=== PATIENT | female | born 1990 | race Caucasian/White ===

== ENCOUNTER 2023-06-08 11:51 | Emergency (ER) | payer OTHER, SELFPAY ==
[2023-06-08 12:07] VITALS: BP 127/83
--- NOTE | 2023-06-08 13:00 | ED.GENMED ---
History of Present Illness
<Breanna Solomon PA-C - Last Filed: 06/11/23 20:17>
General
Chief Complaint: Musculo-Skeletal Complaint
Source: patient
Exam Limitations: none
Time Seen by Provider: 06/08/23 12:42
Nursing documentation reviewed up to this point in time: agreed with
Travel History
Have you had any contact with someone who has COVID-19?: No
Do you have any symptoms of coronavirus? Fever > 100 degrees, chills, cough, shortness of breath, sore throat, loss of taste or smell, muscle aches, or headache?: No
History of Present Illness
History of Present Illness:
Patient is a 32-year-old female with history of sarcoma presenting for evaluation of atraumatic right lower extremity pain. Patient reports pain behind right knee down into right ankle which started about a week ago and has been constant since.
Patient describes it as a throbbing pain that is so severe she has been unable to sleep. She also endorses recent worsening in swelling in right lower extremity mainly in ankle and foot. She has been taking Tylenol, Motrin, oxycodone with very
little improvement in pain. She denies any chest pain, shortness of breath, fever, chills. She denies any numbness/tingling in lower extremity
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 She has been essentially pain-free since procedure until about a week and go when this right lower extremity pain began acutely.
Patient did speak with her plastic surgeon at [facility] who recommended that she come to the emergency department to rule out a DVT.
Patient states that her father does have a history of blood clots in his legs.
Past History
<Breanna Solomon PA-C - Last Filed: 06/11/23 20:17>
Past History
ED Past Medical History: Other (Anemia, ovarian cyst)
ED Past Surgical History: , Orthopedic (Left hip there), Tonsilectomy and Other (Breast left)
Social History
Tobacco: Non-smoker
Alcohol: None
Drug: None
Living: with family
Phy Exam
<Breanna Solomon PA-C - Last Filed: 06/11/23 20:17>
Physical Exam
Physical Exam:
General: Well appearing and non-toxic
Vitals: Vital signs stable, afebrile
HEENT: Atraumatic, normocephalic; pupils equal round reactive light bilaterally, protecting airway
Neck: appears supple, no meningeal signs
CV: Regular rate and rhythm, heart sounds normal, no evidence of cyanosis
Resp: No evidence of respiratory distress, lungs clear bilaterally
Abd: Soft, nontender, non-distended
Extremities: 1+ edema of right lower leg and right foot with mild tenderness at right popliteal and right calf, well healing surgical scar and skin graft site on right anterior lower leg without any signs of infection; right lower extremity
neurovascularly intact, DP and PT pulses palpable and equal bilaterally
Neuro: alert and oriented x 3; grossly intact
Psych: Normal affect
Skin: Intact, well-healing skin graft and scars on the right anterior lower leg
Course
<Breanna Solomon PA-C - Last Filed: 06/11/23 20:17>
Orders/Labs/Results
Orders:
Orders
06/08/23 12:11
US Periph Venous LOWER Ext RT Urgent
Comment: s/p sarcoma surgery right funk 03/2023 at [email or web address]
Reason For Exam: pain to right lower leg
06/08/23 13:35
Acetaminophen [Tylenol] 650 mg PO NOW STA
06/08/23 13:47
Test Result ONCE
06/08/23 14:37
Complete Blood Count/With Diff Urgent
Comprehensive Metabolic Panel Urgent
HCG, Serum Qualitative Screen Urgent
Abnormal Lab Results
06/08/23
14:37
RBC 3.95 L 10^6/uL
(4.20-5.40)
Hct 36.5 L %
(37.0-47.0)
MCH 31.6 H pg
(27.0-31.0)
Chloride 108 H mmol/L
(98-107)
06/08/23 14:37
06/08/23 14:37
Vital Signs
Initial and Last Documented VS:
Initial Vital Signs
Temp Pulse Resp BP Pulse Ox
98.1 F 86 16 127/83 98
06/08/23 12:07 06/08/23 12:07 06/08/23 12:07 06/08/23 12:07 06/08/23 12:07
Last Documented Vital Signs
Temp Pulse Resp BP Pulse Ox
98.1 F 86 16 127/83 98
06/08/23 12:07 06/08/23 12:07 06/08/23 12:07 06/08/23 12:07 06/08/23 12:07
<Felix Rodriguez DO - Last Filed: 06/08/23 20:02>
Orders/Labs/Results
Orders:
Orders
06/08/23 12:11
US Periph Venous LOWER Ext RT Urgent
Comment: s/p sarcoma surgery right funk 03/2023 at [email or web address]
Reason For Exam: pain to right lower leg
06/08/23 13:35
Acetaminophen [Tylenol] 650 mg PO NOW STA
06/08/23 13:47
Test Result ONCE
06/08/23 14:37
Complete Blood Count/With Diff Urgent
Comprehensive Metabolic Panel Urgent
HCG, Serum Qualitative Screen Urgent
Abnormal Lab Results
06/08/23
14:37
RBC 3.95 L 10^6/uL
(4.20-5.40)
Hct 36.5 L %
(37.0-47.0)
MCH 31.6 H pg
(27.0-31.0)
Chloride 108 H mmol/L
(98-107)
06/08/23 14:37
06/08/23 14:37
Vital Signs
Initial and Last Documented VS:
Initial Vital Signs
Temp Pulse Resp BP Pulse Ox
98.1 F 86 16 127/83 98
06/08/23 12:07 06/08/23 12:07 06/08/23 12:07 06/08/23 12:07 06/08/23 12:07
Last Documented Vital Signs
Temp Pulse Resp BP Pulse Ox
98.1 F 86 16 127/83 98
06/08/23 12:07 06/08/23 12:07 06/08/23 12:07 06/08/23 12:07 06/08/23 12:07
<Breanna Solomon PA-C - Last Filed: 06/11/23 20:17>
MDM/Problems Addressed
Differential Diagnosis Includes:
Not limited to: DVT, postoperative healing, Flores's cyst, knee sprain, knee effusion
MDM/Problems Addressed:
Patient is a 32-year-old female approximately 2 months postop from sarcoma removal/skin graft on right lower leg presenting for evaluation of persistent right calf pain and worsening swelling to rule out DVT. No chest pain or shortness of breath.
Vital stable. Exam as above. There is a well-healing surgical site on right anterior funk. There is 1+ pitting edema of right lower extremity significant tenderness palpation. Will check ultrasound to rule out DVT.
Ultrasound report showed no evidence of DVT. She is stable for discharge with return precautions. Patient was instructed to keep leg elevated, ice, pain medication as needed. She should follow-up with her plastic surgeon who performed surgery.
Chronic conditions affecting care:
Recent surgery
Acute Exacerbation and/or Progression of Chronic Illness:
N/A
<Breanna Solomon PA-C - Last Filed: 06/11/23 20:17>
*Radiology
Radiology exam reviewed: radiology read reviewed
*Pulse Oximetry
Patient hypoxic: no
*EKG
Interpreted by ED Provider?: NA
*Com Writer Interpretation
Rate: Com Writer- N/A
*Critical Care Note
Total Time (30-74mins, 75-104mins- exclusive of procedures): Not Applicable
ED Attending Note
<Breanna Solomon PA-C - Last Filed: 06/11/23 20:17>
-
Portions of this chart may have been created with voice recognition software.� Occasional wrong word or��sound alike� substitutions may have occurred due to the inherent limitations of voice recognition software.
<Felix Rodriguez DO - Last Filed: 06/08/23 20:02>
ED Attending Note
Patient seen and examined by attending physician: Yes
I performed the substantive portion of visit, reviewed & personally made and approve the management plan that is documented in note by myself or ALLISON.: Yes
ED Attending Note:
Patient is a 32-year-old female who presents to the emergency department with swelling and pain in her right leg. Patient had an excision of a sarcoma and then skin graft that was completed in April 08. Patient states that initially her leg
when she started to weight-bear on it which was just in the past couple weeks that it would swell but when she elevated with go down. However now its persisted. Patient complains of pain in the calf. In addition patient's father has a history of
repeated DVTs due to a clotting disorder. Patient denies any chest pain or shortness of breath. Patient is mildly swollen in the distal right lower extremity from the knee distally. Patient has a wide excision with a skin graft anteriorly and
laterally. Patient does have some calf tenderness. Patient has good pulses. The ultrasound ultimately was negative. Patient was given instructions to keep elevated and ice.
Discharge Plan
Departure
Patient Disposition: Home (Routine Discharge)
Date of Disposition: 06/08/23
Time of Disposition: 14:53
Patient with high blood pressure during this ER visit?: No
Condition: Good
Covid-19: Not Applicable
Discharge Problem:
Lower extremity pain, right, Swelling of right lower extremity
Prescriptions:
No Action
Fish Oil
1 cap PO DAILY
Opti Greens
1 dose PO DAILY
Rx Instructions:
powder
Probiotic
12 cap PO DAILY
coQ10 (ubiquinol)
1 cap PO DAILY
Referrals:
Mile Dietz PA-C [Family Provider] -
Activity Restrictions/Additional Instructions:
- Return to the emergency department with any high fevers, chest pain, shortness of breath, intractable pain, worsening swelling, redness, warmth of right lower extremity, or any other concerns
-As discussed�you should continue to rest, ice, and elevate your right lower extremity. You can continue Tylenol/Motrin as needed for discomfort
-We will give you a call if the ultrasound shows any evidence of a DVT.
-You should follow-up with your plastic surgeon for further evaluation/management
Interventions
Interventions:
*Risk Screen - Suicide Last Done: 06/08/23 15:16
*General Assessment Last Done: 06/08/23 15:16
*Neglect/Abuse Screening Last Done: 06/08/23 15:16
*ED COVID-19 Vaccine History Last Done: 06/08/23 12:07
*Nursing Disposition Last Done: 06/08/23 15:08
ED-Musculoskeletal Assessment Last Done: 06/08/23 12:47
Discharge Date and Time
Discharge Date/Time: 06/08/23 15:05
Print Language: TELUGU
[2023-06-08] MEDS: TYLENOL 650 MG PO (14:27)
[2023-06-08 14:49] LABS: % Eosinophils 1.5 % (0-6); % Immature Granulocytes 0.4 % (0-0.5); % Lymphocytes 32.9 % (20.5-51.1); % Monocytes 5.4 % (1.7-9.3); % Neutrophils 58.8 % (42.2-75.2); Absolute Basophils 0.1 10^3/uL (0-0.2); Absolute Eosinophils 0.1 10^3/uL (0-0.7); Absolute Lymphocytes 2.2 10^3/uL (1.2-3.4); Absolute Monocytes 0.4 10^3/uL (0.1-0.6); Hematocrit 36.5 % (37.0-47.0); Hemoglobin 12.5 g/dL (12.0-16.0); Mean Corp Hgb Conc. 34.2 g/dL (33.0-37.0); Mean Corpuscular Hgb 31.6 pg (27.0-31.0); Mean Corpuscular Volume 92.4 fL (81.0-99.0); Nucleated Red Blood Cells % 0 %; Platelet Count 327 10^3/uL (130-400); Red Blood Cell Count 3.95 10^6/uL (4.20-5.40); White Blood Cell Count 6.8 10^3/uL (4.8-10.8)
[2023-06-08 15:09] LABS: ALT (SGPT) 14 U/L (0-35); AST (SGOT) 20 U/L (14-36); Albumin 4.5 g/dl (3.5-5.0); Alkaline Phosphatase 42 U/L (38-126); Blood Urea Nitrogen 11 mg/dl (7-17); Calcium 9.4 mg/dl (8.4-10.2); Carbon Dioxide 24 mmol/L (22-30); Chloride 108 mmol/L (98-107); Glucose 88 mg/dl (70-99); Potassium 4.4 mmol/L (3.5-5.1); Sodium 137 mmol/L (135-145); Total Bilirubin 0.5 mg/dl (0.2-1.3); Total Protein 7.1 g/dl (6.3-8.2); eGFR > 60.00
[2023-06-08 15:13] LABS: HCG, Serum Qualitative Screen Negative
== END 2023-06-08 15:05 | disposition home or self-care (01) ==
LOC: EMR 11:51
PROVIDERS: Physician Assistant; EMERGENCY PHYSICIAN Emergency Medicine; FAMILY PHYSICIAN Physician Assistant Medical
DX: M79.605 Pain in left leg (principal); R22.41 Localized swelling, mass and lump, right lower limb
CPT/HCPCS: 99284; 80053; 84703; 85025; 93971

== ENCOUNTER 2023-08-21 14:24 | Outpatient (RCR) | payer OTHER, SELFPAY | END 2023-08-21 23:59 | disposition home or self-care (01) | LOC: RPT 14:24 | PROVIDERS: ATTENDING PHYSICIAN Physician Assistant; FAMILY PHYSICIAN Physician Assistant Medical | DX: M21.371 Foot drop, right foot (principal); R26.9 Unspecified abnormalities of gait and mobility; Z73.6 Limitation of activities due to disability | CPT/HCPCS: 97110; 97112; 97162; 97530 ==

== ENCOUNTER 2023-09-10 10:07 | Outpatient (RCR) | payer OTHER, SELFPAY | END 2023-09-10 23:59 | disposition home or self-care (01) | LOC: RPT 10:07 | PROVIDERS: ATTENDING PHYSICIAN Physician Assistant; FAMILY PHYSICIAN Physician Assistant Medical | DX: M12.371 Palindromic rheumatism, right ankle and foot (principal); R26.9 Unspecified abnormalities of gait and mobility; Z73.6 Limitation of activities due to disability | CPT/HCPCS: 97010; 97110; 97112; 97530 ==

== ENCOUNTER 2024-02-11 09:01 | Outpatient (RCR) | payer OTHER, SELFPAY | END 2024-02-11 23:59 | disposition home or self-care (01) | LOC: RPT 09:01 | PROVIDERS: ATTENDING PHYSICIAN Orthopaedic Surgery; FAMILY PHYSICIAN Physician Assistant Medical | DX: C49.21 Malignant neoplasm of connective and soft tissue of right lower limb, including hip (principal); Z73.6 Limitation of activities due to disability; Z98.890 Other specified postprocedural states | CPT/HCPCS: 97014; 97110; 97112; 97163 ==

== ENCOUNTER 2024-03-24 09:01 | Outpatient (RCR) | payer OTHER, SELFPAY | END 2024-03-24 23:59 | disposition home or self-care (01) | LOC: RPT 09:01 | PROVIDERS: ATTENDING PHYSICIAN Orthopaedic Surgery; FAMILY PHYSICIAN Physician Assistant Medical | DX: C49.21 Malignant neoplasm of connective and soft tissue of right lower limb, including hip (principal); Z73.6 Limitation of activities due to disability; M62.81 Muscle weakness (generalized); Z98.890 Other specified postprocedural states | CPT/HCPCS: 97014; 97110; 97112; 97140 ==

== ENCOUNTER 2024-03-28 13:35 | Outpatient (RCR) | payer OTHER, SELFPAY | END 2024-03-28 23:59 | disposition home or self-care (01) | LOC: RPT 13:35 | PROVIDERS: ATTENDING PHYSICIAN Orthopaedic Surgery; FAMILY PHYSICIAN Physician Assistant Medical | DX: C49.21 Malignant neoplasm of connective and soft tissue of right lower limb, including hip (principal); Z73.6 Limitation of activities due to disability; M62.81 Muscle weakness (generalized); Z98.890 Other specified postprocedural states; R26.89 Other abnormalities of gait and mobility | CPT/HCPCS: 97110; 97112 ==